=== PATIENT | female | born 1995 | race Caucasian/White ===

== ENCOUNTER 2023-10-12 08:24 | Emergency (ER) | payer BC ==
[2023-10-12 09:34] LABS: BASOPHILS PERCENT AUTO 0.3 % (0.0-1.0); EOSINOPHILS ABSOLUTE AUTO 0.1 K/mm3 (0.0-0.4); EOSINOPHILS PERCENT AUTO 0.7 % (0.0-6.0); HEMATOCRIT 45.7 % (37.0-47.0); HEMOGLOBIN 15.4 gm/dl (12.0-16.0); IMMATURE GRAN ABSOLUTE AUTO 0.03 K/mm3 (0.00-0.05); IMMATURE GRAN PERCENT AUTO 0.3 % (0.0-0.4); LYMPHOCYTES ABSOLUTE AUTO 1.1 K/mm3 (1.0-4.8); LYMPHOCYTES PERCENT AUTO 11.3 % (24.0-44.0); MEAN CORPUSCULAR HEMOGLOBIN 28.2 pg (28.0-32.0); MEAN CORPUSCULAR HGB CONC 33.7 g/dl (32.0-36.0); MEAN CORPUSCULAR VOLUME 83.7 fl (83.0-99.0); MEAN PLATELET VOLUME 9.4 fl (9.4-12.3); MONOCYTES ABSOLUTE AUTO 0.8 K/mm3 (0.0-0.8); MONOCYTES PERCENT AUTO 7.5 % (0.0-8.0); NEUTROPHILS ABSOLUTE AUTO 8.1 K/mm3 (1.8-7.7); NEUTROPHILS PERCENT AUTO 79.9 % (41.0-71.0); PLATELET COUNT,PLT 334 K/mm3 (150-400); RED BLOOD CELL COUNT 5.46 M/mm3 (4.10-5.30); WHITE BLOOD CELL COUNT,WBC 10.08 K/mm3 (3.9-11.3)
[2023-10-12 10:13] LABS: A/G RATIO 0.9 (1-2); ALBUMIN 3.6 g/dl (3.4-5.0); ANION GAP 14.9 (5-15); BILIRUBIN TOTAL 0.3 mg/dL (0.2-1.0); CALCIUM 8.7 mg/dL (8.5-10.1); CREATININE 0.9 mg/dL (0.55-1.02); EST CRCL DRUG DOSING (CG) 104.01 mL/min; POTASSIUM,K 3.9 mEq/L (3.5-5.1); PROTEIN TOTAL,TP 7.5 g/dl (6.4-8.2)
== END 2023-10-12 10:52 | disposition home or self-care (01) ==
LOC: JD.ED 08:24
DX: O20.0 Threatened abortion (principal); Z3A.00 Weeks of gestation of pregnancy not specified
CPT/HCPCS: 36415; 80053; 84702; 85025; 86850; 86900; 86901; 99284

== ENCOUNTER 2023-11-15 19:07 | Day surgery (SDC) | payer BC ==
[2023-11-15 19:57] LABS: BASOPHILS ABSOLUTE AUTO 0.1 K/mm3 (0.0-0.2); BASOPHILS PERCENT AUTO 0.3 % (0.0-1.0); EOSINOPHILS ABSOLUTE AUTO 0.2 K/mm3 (0.0-0.4); EOSINOPHILS PERCENT AUTO 0.9 % (0.0-6.0); HEMATOCRIT 37.3 % (37.0-47.0); HEMOGLOBIN 12.5 gm/dl (12.0-16.0); IMMATURE GRAN ABSOLUTE AUTO 0.08 K/mm3 (0.00-0.05); IMMATURE GRAN PERCENT AUTO 0.5 % (0.0-0.4); LYMPHOCYTES ABSOLUTE AUTO 2.1 K/mm3 (1.0-4.8); LYMPHOCYTES PERCENT AUTO 12.7 % (24.0-44.0); MEAN CORPUSCULAR HEMOGLOBIN 27.7 pg (28.0-32.0); MEAN CORPUSCULAR HGB CONC 33.5 g/dl (32.0-36.0); MEAN CORPUSCULAR VOLUME 82.7 fl (83.0-99.0); MEAN PLATELET VOLUME 9.7 fl (9.4-12.3); MONOCYTES ABSOLUTE AUTO 1.1 K/mm3 (0.0-0.8); MONOCYTES PERCENT AUTO 6.4 % (0.0-8.0); NEUTROPHILS ABSOLUTE AUTO 13.2 K/mm3 (1.8-7.7); NEUTROPHILS PERCENT AUTO 79.2 % (41.0-71.0); PLATELET COUNT,PLT 533 K/mm3 (150-400); RED BLOOD CELL COUNT 4.51 M/mm3 (4.10-5.30); WHITE BLOOD CELL COUNT,WBC 16.63 K/mm3 (3.9-11.3)
[2023-11-15] MEDS ORDERED: Morphine 4 MG/ML Syringe IVPUSH ONE (20:14)
[2023-11-15 20:17] LABS: ALBUMIN 3.2 g/dl (3.4-5.0); ANION GAP 16.8 (5-15); BILIRUBIN TOTAL 0.3 mg/dL (0.2-1.0); CALCIUM 8.6 mg/dL (8.5-10.1); EST CRCL DRUG DOSING (CG) 96.65 mL/min; POTASSIUM,K 3.8 mEq/L (3.5-5.1); PROTEIN TOTAL,TP 6.3 g/dl (6.4-8.2)
[2023-11-15] MEDS: Sodium Chloride 0.9% 1,000 ML IV ONE (20:33)
[2023-11-15 21:38] LABS: HEMATOCRIT 33.6 % (37.0-47.0); HEMOGLOBIN 11.4 gm/dl (12.0-16.0)
[2023-11-15] MEDS: Norepinephrine 4 MG in Dextrose 5% in Water 246 ML IV SCH (21:41)
[2023-11-15] MEDS: Norepinephrine 4 MG/4 ML SDV ONE (22:05)
[2023-11-15] MEDS ORDERED: Etomidate 2 MG/ML 20 ML SDV IVPUSH ONE (22:23)
[2023-11-15] MEDS ORDERED: fentaNYL 250 MCG/5 ML SDV ONE (22:27)
[2023-11-15] MEDS ORDERED: Midazolam 1 MG/ML 2 ML SDV ONE (22:27)
[2023-11-15] MEDS ORDERED: Rocuronium 50 MG/5 ML Vial ONE (22:27)
[2023-11-15] MEDS ORDERED: Lidocaine 1% 6 ML ONE (22:51)
[2023-11-15] MEDS ORDERED: Ondansetron 4 MG/2 ML SDV ONE (22:59)
[2023-11-15] MEDS ORDERED: Sodium Chloride 0.9% 1,000 ML ONE (23:19)
[2023-11-15] MEDS ORDERED: Succinylcholine 200 MG/10 ML MDV ONE (23:21)
[2023-11-15] MEDS ORDERED: Dexamethasone 4 MG/ML 5 ML MDV ONE (23:41)
[2023-11-15] MEDS ORDERED: Sugammadex Sodium 200 MG/2 ML VIAL IV ONE (23:47)
[2023-11-15] MEDS ORDERED: dexmedeTOMIDine HCl 200 MCG/2 ML SDV ONE (23:50)
[2023-11-16] MEDS ORDERED: HYDROmorphone 0.5 MG/0.5 ML Syringe IVPUSH PRN (00:10)
[2023-11-16] MEDS: fentaNYL 100 MCG/2 ML SDV IVPUSH PRN (00:27)
[2023-11-16] MEDS: Bupivacaine 0.25% 10 ML SDV ONE (00:43)
[2023-11-16] MEDS ORDERED: Acetaminophen/oxyCODONE 325-5 MG Tab PO PRN (00:50)
[2023-11-16] MEDS ORDERED: Sodium Chloride 0.9% 10 ML Syringe FLUSH PRN (00:50)
[2023-11-16] MEDS ORDERED: Ondansetron 4 MG/2 ML SDV IVPUSH PRN (00:50)
[2023-11-16] MEDS: Ketorolac 15 MG/ML SDV IVPUSH SCH (01:16)
[2023-11-16] MEDS: Acetaminophen/oxyCODONE 325-5 MG Tab PO PRN (02:32)
[2023-11-16 05:43] LABS: HEMATOCRIT 35.1 % (37.0-47.0); HEMOGLOBIN 11.9 gm/dl (12.0-16.0); MEAN CORPUSCULAR HEMOGLOBIN 28.3 pg (28.0-32.0); MEAN CORPUSCULAR HGB CONC 33.9 g/dl (32.0-36.0); MEAN CORPUSCULAR VOLUME 83.6 fl (83.0-99.0); MEAN PLATELET VOLUME 9.7 fl (9.4-12.3); WHITE BLOOD CELL COUNT,WBC 17.82 K/mm3 (3.9-11.3)
[2023-11-16 05:52] LABS: PLATELET COUNT,PLT 354 K/mm3 (150-400)
== END 2023-11-16 14:30 | disposition home or self-care (01) ==
LOC: JD.ED 19:07 → JD.SDS 21:25 → JD.OB 11-16 00:10 → JD.SDS 11-16 14:30
PROVIDERS: ATTEND Obstetrics & Gynecology
DX: O00.101 Right tubal pregnancy without intrauterine pregnancy (principal); Z79.899 Other long term (current) drug therapy
CPT/HCPCS: 00840; 36415; 36430; 76817; 76817-26; 80053; 82947; 84702; 85014; 85018; 85025; 85027; 86850; 86900; 86901; 86922; 99140; 99285; A9270-GY; J0330; J1100; J1885; J2250; J2405; J3010; J3490; J7030; J7060; P9016